=== PATIENT | male | born 1965 | race African-American/Black ===

== ENCOUNTER 2016-08-31 20:18 | Emergency (ER) | payer OTHER ==
[2016-12-07] MEDS ORDERED: OPANA ER15 MG PO (11:57)
[2016-12-07] MEDS ORDERED: OXYCOD PO (11:58)
[2016-12-07] MEDS ORDERED: IBU800 PO (11:58)
[2016-12-07] MEDS ORDERED: NEUR400 PO (11:59)
[2016-12-07] MEDS ORDERED: SEROQUEL400 MG PO (11:59)
== END 2016-09-01 03:16 | disposition home or self-care (01) ==
LOC: ER 20:18
DX: S16.1XXA Strain of muscle, fascia and tendon at neck level, initial encounter (principal); M54.5 Low back pain; G89.29 Other chronic pain; F11.90 Opioid use, unspecified, uncomplicated; F17.200 Nicotine dependence, unspecified, uncomplicated; F31.9 Bipolar disorder, unspecified; V49.9XXA Car occupant (driver) (passenger) injured in unspecified traffic accident, initial encounter
CPT/HCPCS: 72040; 72100; 72125; 96372; 99284; A9270-GY; J2360